=== PATIENT | female | born 1975 | race Caucasian/White ===

== ENCOUNTER 2018-03-01 11:14 | Emergency (ER) | payer MEDICARE, OTHER ==
[~2018-03-01] VITALS: Ht 162.6 cm; Wt 72.6 kg
[2018-03-01] MEDS ORDERED: EPINEPHrine 0.1 MG/ML 10 ML (HOSPIRA) SYR IJ ONE (11:17)
[2018-03-01] MEDS ORDERED: NOREPINEPHRINE 4 MG in NS (IVPB) 250 ML IV SCH (11:33)
[2018-03-01] MEDS ORDERED: NS (IVPB) 250 ML ONE ×4 (11:33→13:16)
[2018-03-01] MEDS ORDERED: NOREPINEPHRINE 4 MG/4 ML (LEVOPHED) AMP IV ONE ×2 (11:33→13:16)
[2018-03-01 11:37] LABS: HEMOGLOBIN 14.4 G/DL (11.5-16.0); MEAN PLATELET VOLUME 11.4 FL (7.4-10.4); RED CELL DISTRIBUTION WIDTH 14.6 % (10.0-14.5); WHITE BLOOD COUNT 17.4 10^3/uL (4.3-11.0)
[2018-03-01] MEDS ORDERED: NS IV 1000 ML 1,000 ML IV SCH ×2 (11:37→12:45)
[2018-03-01] MEDS ORDERED: EPINEPHrine INJECTION 1 MG/ML AMP ONE ×2 (11:41→13:16)
[2018-03-01] MEDS ORDERED: EPINEPHrine 1 MG INJECTION 2 MG in NS (IVPB) 248 ML IV SCH (11:50)
--- NOTE | 2018-03-01 12:21 | Diagnostic Imaging Report ---
INDICATION: CODE BLUE. COMPARISON: None. FINDINGS: Single view of the chest demonstrates an IJ catheter in the SVC. ET tube is in the distal trachea. Diffuse infiltrates are seen throughout both lungs. There is no pneumothorax or large effusion. The heart is prominent. Osseous structures are normal. IMPRESSION: 1. Well-positioned support lines. 2. Diffuse bilateral pulmonary infiltrates. Dictated by: Dictated on workstation # [id number]
[2018-03-01] MEDS ORDERED: NS IV 1000 ML 1,000 ML ONE ×2 (12:28→15:47)
[2018-03-01 12:42] LABS: ALANINE AMINOTRANSFERASE 3805 U/L (0-55); ALBUMIN 2.2 GM/DL (3.2-4.5); ALKALINE PHOSPHATASE 83 U/L (40-136); BILIRUBIN,TOTAL 0.5 MG/DL (0.1-1.0); BUN/CREATININE RATIO 11; CALCIUM 6.6 MG/DL (8.5-10.1); CARBON DIOXIDE 14 MMOL/L (21-32); CHLORIDE 102 MMOL/L (98-107); GFR ESTIMATED 29; GLUCOSE 103 MG/DL (70-105); MAGNESIUM 2.5 MG/DL (1.8-2.4); POTASSIUM 5.2 MMOL/L (3.6-5.0); SODIUM 140 MMOL/L (135-145); TOTAL PROTEIN 4.3 GM/DL (6.4-8.2)
[2018-03-01 12:45] LABS: BILIRUBIN,URINE NEGATIVE (NEGATIVE); GLUCOSE, URINE (UA) NEGATIVE (NEGATIVE); KETONES,URINE NEGATIVE (NEGATIVE); LEUKOCYTE ESTERASE ,URINE 2+ (NEGATIVE); NITRITE,URINE NEGATIVE (NEGATIVE); PH,URINE 6 (5-9); PROTEIN,URINE 2+ (NEGATIVE); UROBILINOGEN,URINE 1 MG/DL (NORMAL)
[2018-03-01] MEDS ORDERED: PIPERACILLIN SODIUM/TAZOBACTAM 4.5 GM in NS (IVPB) 100 ML IV ONE (12:45)
--- NOTE | 2018-03-01 12:50 | ED CPR ---
HPI-CPR General Chief Complaint: Code Blue Stated Complaint: CODE BLUE Source of Information: EMS, Family Exam Limitations: Physical Impairments History of Present Illness Date Seen by Provider: Mar 01, 2018 Time Seen by Provider: 11:15 Initial Comments Here by EMS with code in progress. Apparently the patient had an episode were she may have aspirated and had difficulty breathing and which ultimately resulted and unresponsiveness. EMS was called and found her to be not breathing and in asystole. ACLS measures initiated including CPR. IO placed to the right tibia. Fluids were administered. Epinephrine 1 mg IV given 5 in the field as well as 1 amp of bicarbonate and 1 mg atropine. Patient did progress to PEA after 3 rounds of epi and arrives to the emergency department in PEA. 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 At approximately 32 years of age she started having ataxia problems that was attributed to post radiation therapy and had some weakness on the left side. This also included left-sided vocal cord dysfunction. About 6 years ago she had an incident with pneumonia which was related to MRSA and suspected to be related to aspiration. Ultimately she was intubated but did not require tracheostomy. She does have surgical scar on the neck that is from surgery to the left vocal cord due to significant vocal cord dysfunction. She also has gastric tube of some sort in place to the central abdomen. She does have problems with silent aspiration and family believes that she aspirated today. EMS reports large volume of vomitus within the oropharynx at time of intubation. She had large amount of secretions both gastric secretions and blood. Mother and father arrived into the emergency department and are able to provide some history. Her and she lives in [place], [place] and he is in route currently. Initial Complaints: Dyspnea, Found Unresponsive Witnessed Arrest: Yes Bystander CPR: No Paramedics Initial Findings: Asystole, No Respirations Pre Hospital Treatment: Bag Valve Mask, CPR/Thumper, Intubation, Oxygen, IV Fluids, Atropine (mg) (1), Epinephrine (mg) (6), Sodium Bicarb (amps) (1) Allergies and Home Medications Allergies Coded Allergies: No Allergy Information Available (Unverified , 03/01/18) Patient Home Medication List Home Medication List Reviewed: Yes Review of Systems Review of Systems Constitutional: see HPI; No chills, No fever Respiratory: See HPI, Shortness of Air Cardiovascular: See HPI Gastrointestinal: See HPI Other Comments Unable to complete review of systems due to unresponsive and critical condition Past Nmfiqqf-Mxqzez-Rxwqaj Hx Past Med/Social Hx: Reviewed Nursing Past Med/Soc Hx Past Medical History Surgeries: Yes Abdominal, Neurological, Tracheostomy Respiratory: Yes (aspiration pneumonia) Pneumonia (.) Neurological: Yes Gastrointestinal: Yes Family Medical History Limited history due to critical condition. Family gave some history. Physical Exam Vital Signs Vital Signs - First Documented 03/01/18 03/01/18 11:15 12:30 Temp 94.3 Pulse 101 Resp 15 B/P (MAP) 112/82 (92) Pulse Ox 78 O2 Delivery Ambu Bag O2 Flow Rate 16.00 FiO2 100 Capillary Refill : Height, Weight, BMI Height: '" Weight: lbs. oz. kg; BMI Method: General Appearance: Other (unresponsive and not breathing) HEENT: Other (pupils initially dilated and fixed. Large amount of vomitus within the pharynx) Neck: Non Tender, Supple Respiratory: Crackles, Decreased Breath Sounds (with bagging) Cardiovascular: No Murmur, Tachycardia, Other (initially no pulse but tachycardia after return of spontaneous circulation) Gastrointestinal: Non Tender, Soft, Other (G-tube in place central abdomen) Extremity: No Pedal Edema, Other (absent capillary refill initially and then to sluggish) Neurologic/Psychiatric: Other (unresponsive) Skin: Warm/Dry, Pallor (initially quite pale but did pink after return of circulation) Focused Exam Lactate Level 03/01/18 12:13: Lactic Acid Level 15.52*H Lactic Acid Level Laboratory Tests Test 03/01/18 12:13 Lactic Acid Level 15.52 MMOL/L (0.50-2.00) *H Procedures/Interventions Lumen: triple Central Line Procedure: betadine prep, sterile drapes applied, sterile dressing applied Position: internal jugular (R) Complications: none Post Position: sutured, good blood return, position confirmed w/ CXR Place here ultrasound guidance 2 stick without complications Date of ETT Placement: Mar 01, 2018 Time of ETT Placement: 12:00 Intubation Method: orotracheal Tube Size: 7 Positive End Tide CO2: Yes Breath Sounds after Intubation: bilateral-equal Intubation Complications: apparent aspiration Post Intubation Xray: Yes tube in good position Patient did have tubes placed by EMS that was full of vomitus. There is concerns about dislodged tube and this was removed and replaced. EMS did start with eye gel but there is too much vomitus in the pharynx to control secretions adequately. Concern for significant aspiration due to the amount of vomitus in the mouth and in the tube after intubation. Suctioned and large amounts of fluid obtained from the ET tube. Progress/Results/Core Measures Results/Orders Lab Results Laboratory Tests Test 03/01/18 11:27 03/01/18 11:56 03/01/18 12:13 03/01/18 12:23 Range/Units White Blood Count 17.4 H 4.3-11.0 10^3/uL Red Blood Count 5.00 4.35-5.85 10^6/uL Hemoglobin 14.4 11.5-16.0 G/DL Hematocrit 50 35-52 % Mean Corpuscular Volume 99 80-99 FL Mean Corpuscular Hemoglobin 29 25-34 PG Mean Corpuscular Hemoglobin Concent 29 L 32-36 G/DL Red Cell Distribution Width 14.6 H 10.0-14.5 % Platelet Count 110 L 130-400 10^3/uL Mean Platelet Volume 11.4 H 7.4-10.4 FL Glucometer 123 H 70-110 MG/DL Sodium Level 140 135-145 MMOL/L Potassium Level 5.2 H 3.6-5.0 MMOL/L Chloride Level 102 98-107 MMOL/L Carbon Dioxide Level 14 L 21-32 MMOL/L Anion Gap 24 H 5-14 MMOL/L Blood Urea Nitrogen 20 H 7-18 MG/DL Creatinine 1.90 H 0.60-1.30 MG/DL Estimat Glomerular Filtration Rate 29 BUN/Creatinine Ratio 11 Glucose Level 103 70-105 MG/DL Lactic Acid Level 15.52 *H 0.50-2.00 MMOL/L Calcium Level 6.6 L 8.5-10.1 MG/DL Corrected Calcium 8.0 L 8.5-10.1 MG/DL Magnesium Level 2.5 H 1.8-2.4 MG/DL Total Bilirubin 0.5 0.1-1.0 MG/DL Aspartate Amino Transf (AST/SGOT) 3621 H 5-34 U/L Alanine Aminotransferase (ALT/SGPT) 3805 H 0-55 U/L Alkaline Phosphatase 83 40-136 U/L Troponin I < 0.30 <0.30 NG/ML Total Protein 4.3 L 6.4-8.2 GM/DL Albumin 2.2 L 3.2-4.5 GM/DL Urine Color YELLOW Urine Clarity CLEAR Urine pH 6 5-9 Urine Specific Hiko 1.020 1.016-1.022 Urine Protein 2+ H NEGATIVE Urine Glucose (UA) NEGATIVE NEGATIVE Urine Ketones NEGATIVE NEGATIVE Urine Nitrite NEGATIVE NEGATIVE Urine Bilirubin NEGATIVE NEGATIVE Urine Urobilinogen 1 NORMAL MG/DL Urine Leukocyte Esterase 2+ H NEGATIVE Urine RBC (Auto) NEGATIVE NEGATIVE Urine RBC NONE /HPF Urine WBC RARE /HPF Urine Squamous Epithelial Cells 0-2 /HPF Urine Crystals NONE /LPF Urine Bacteria NEGATIVE /HPF Urine Casts NONE /LPF Urine Mucus NEGATIVE /LPF Urine Culture Indicated NO Test 03/01/18 13:20 Range/Units Blood Gas Puncture Site RT RAD Blood Gas Patient Temperature 93.9 Arterial Blood pH 7.25 *L 7.37-7.43 Arterial Blood Partial Pressure CO2 39 35-45 MMHG Arterial Blood Partial Pressure O2 79 79-93 MMHG Arterial Blood HCO3 17 *L 23-27 MMOL/L Arterial Blood Total CO2 18.5 L 21.0-31.0 MMOL/L Arterial Blood Oxygen Saturation 97 94-100 % Arterial Blood Base Excess -9.1 L -2.5-2.5 MMOL/L Zachariah Test YES-POS Blood Gas Ventilator Setting NA Blood Gas Inspired Oxygen 100% My Orders Orders - KELLY CHERY MD Cbc No Diff (03/01/18 11:30) Lactic Acid Analyzer (03/01/18 11:30) Arterial Blood Gas (03/01/18 11:30) Ns (Ivpb) (Sodium Chloride 0.9%) (03/01/18 11:33) Norepinephrine (Levophed) (03/01/18 11:33) Epinephrine 1 Mg Injection (Adrenalin I (03/01/18 11:41) Ns (Ivpb) (Sodium Chloride 0.9%) (03/01/18 11:41) Chest 1 View, Ap/Pa Only (03/01/18 12:13) Blood Culture (03/01/18 12:23) Chest 1 View, Ap/Pa Only (03/01/18 12:23) Comprehensive Metabolic Panel (03/01/18 12:13) Magnesium (03/01/18 12:13) Troponin I (03/01/18 12:13) Ns Iv 1000 Ml (Sodium Chloride 0.9%) (03/01/18 12:28) Ua Culture If Indicated (03/01/18 12:34) Piperacillin Sodium/Tazobactam (Zosyn Vi (03/01/18 12:45) Ns (Ivpb) (Sodium Chloride 0.9%) (03/01/18 13:15) Norepinephrine (Levophed) (03/01/18 13:16) Epinephrine 1 Mg Injection (Adrenalin I (03/01/18 13:16) Ns (Ivpb) (Sodium Chloride 0.9%) (03/01/18 13:16) Ns Iv 1000 Ml (Sodium Chloride 0.9%) (03/01/18 15:47) Norepinephrine (Levophed) (03/01/18 11:33) Ns (Ivpb) (Sodium C... W/Epinephrine 1 (03/01/18 11:50) Ns Iv 1000 Ml (Sodium Chloride 0.9%) (03/01/18 11:37) Ns Iv 1000 Ml (Sodium Chloride 0.9%) (03/01/18 12:45) Catheter(Urinary) Insert & Ass 03,15 (03/01/18 12:20) Medications Given in ED Current Medications Medications Dose Ordered Sig/Harini Route Start Time Stop Time Status Last Admin Dose Admin Piperacillin Sod/ Tazobactam Sod 4.5 gm/Sodium Chloride 100 ml @ 200 mls/hr ONCE ONCE IV 03/01/18 12:45 03/01/18 13:14 DC 03/01/18 12:48 200 MLS/HR Vital Signs/I&O 03/01/18 03/01/18 03/01/18 03/01/18 11:15 11:15 12:30 13:57 Temp 94.3 Pulse 101 104 Resp 15 16 B/P (MAP) 112/82 (92) 67/52 (57) Pulse Ox 78 98 85 O2 Delivery Ambu Bag Ambu-Bag Mechanical Ventilator O2 Flow Rate 16.00 FiO2 100 Progress Progress Note : Progress Note Seen and evaluated on arrival by EMS. Patient had pulseless and apneic. PEA noted on monitor. CPR continued. Intubated by EMS but changed in the emergency department due to significant amount of fluid in the tube and concerns of dislodgment. Replaced with 7-0 with good bilateral breath sounds. I did speak with family about concerns and we continued CPR. Patient did receive epinephrine 5 and then did have spontaneous return of circulation. Patient was hypotensive on return of circulation she was then started on Levophed drip. OG tube and Chi catheter placed. Central line placed by me due to requirements for pressors. Patient did receive 2 L of normal saline. We did additionally add epinephrine drip. Blood pressure is labile but responding to Levophed and epinephrine with titration of on both.. Vent settings with tidal volume of 450, rate of 16 and PEEP of 5 initiated. This was adjusted to tidal volume of 500 with rate of 15 and PEEP of 7 on 100 percent O2. Levophed adjusted from 15-35 mcg/m and epinephrine and initiated at 10 and has been adjusted to 20 mcg/m to keep map greater than 65. I did discuss the case with Dr. Ware at [facility] in [place], [place] at 1230. He accepts patient for transfer. Pending bed assignment. EMS notified. 1300 : Patient having difficult course related to blood pressure management and management of airway. We did slowly titrate ventilator and pressors to achieve stability. 1322: I have talked at length with the parents and the patient's with regard to current status and critical condition and the therapies thus far. Patient has had multiple adjustments on her meds. Current blood pressure 82/59 with heart rate of 105 and O2 sat of 90 percent with the above settings. EMS arrives and report given to them by me. Emergent transfer to [facility] in [facility] for consideration of therapeutic hypothermia and critical care. All of this was discussed with patient's family who agree with transfer. Initial ECG Impression Date: Mar 01, 2018 Initial ECG Impression Time: 12:28 Initial ECG Rate: 102 Initial ECG Rhythm: S.Tach Comment Sinus tachycardia with left atrial abnormality. Right axis deviation. No evidence of ST elevation ND. No previous available for comparison. Interpreted by me. Diagnostic Imaging Diagonstic Imaging: Xray Plain Films/CT/US/NM/MRI: chest Comments [facility] [place], [place] NAME: RUPESH JOYCE [facility] REC#: [id number] PT STATUS: REG ER : 1975 PHYSICIAN: KELLY CHERY MD ADMIT DATE: 03/01/18/ER Draft Date of Exam:03/01/18 CHEST 1 VIEW, AP/PA ONLY INDICATION: CODE BLUE. COMPARISON: None. FINDINGS: Single view of the chest demonstrates an IJ catheter in the SVC. ET tube is in the distal trachea. Diffuse infiltrates are seen throughout both lungs. There is no pneumothorax or large effusion. The heart is prominent. Osseous structures are normal. IMPRESSION: 1. Well-positioned support lines. 2. Diffuse bilateral pulmonary infiltrates. Dictated on workstation # [id number] Dict: 03/01/18 1218 Trans: 03/01/18 1221 [id number] Interpreted by: TOSHIA GARCIA Electronically signed by: Rikki Imaging: Xray Plain Films/CT/US/NM/MRI: chest Comments NAME: RUPESH JOYCE [facility] REC#: [id number] PT STATUS: REG ER : 1975 PHYSICIAN: KELLY CHERY MD ADMIT DATE: 03/01/18/ER Signed Date of Exam: 03/01/18 CHEST 1 VIEW, AP/PA ONLY INDICATION: Intubated. COMPARISON: 03/01/2018 at 12:10 p.m. FINDINGS: Single view of the chest demonstrates an ET tube in the distal trachea. There is an NG tube within the stomach. The side-port is at or just inferior to the GE junction. The right IJ catheter is stable. Infiltrates continue throughout both lungs. There is no pneumothorax. IMPRESSION: 1. Support lines as described. 2. Unchanged aeration of the lungs. Dictated by: Dictated on workstation # [id number] Dict: 03/01/18 1257 Trans: 03/01/18 1319 Interpreted by: TOSHIA GARCIA Electronically signed by: TOSHIA GARCIA 03/01/18 1319 Critical Care Note Critical Care Start Time: 11:15 Stop Time: 13:30 Total Time (minutes) 60 Departure Impression Primary Impression: Cardiopulmonary arrest with successful resuscitation Additional Impressions: Aspiration pneumonia Qualified Codes: J69.0 - Pneumonitis due to inhalation of food and vomit Hypoxia Acute respiratory failure Qualified Codes: J96.01 - Acute respiratory failure with hypoxia; J96.02 - Acute respiratory failure with hypercapnia Disposition: 02 XFER SHT-TRM HOSP Condition: Critical Transfer Time Spoke to Accepting Phy: 12:30 Transfer Time: 13:30 Transfer Facility: [place], [place], Dr. Ware accepting Method of Transfer: EMS Departure-Patient Inst. Referrals: NO,LOCAL PHYSICIAN (PCP/Family) Primary Care Physician KELLY CHERY MD Mar 01, 2018 12:50
[2018-03-01 12:59] LABS: BACTERIA,URINE NEGATIVE /HPF; CLARITY,URINE CLEAR; COLOR,URINE YELLOW; SQUAMOUS EPITHELIAL CELL,UR 0-2 /HPF; WBC,URINE RARE /HPF
--- NOTE | 2018-03-01 13:02 | Diagnostic Imaging Report ---
INDICATION: Intubated. COMPARISON: 03/01/2018 at 12:10 p.m. FINDINGS: Single view of the chest demonstrates an ET tube in the distal trachea. There is an NG tube within the stomach. The side-port is at or just inferior to the GE junction. The right IJ catheter is stable. Infiltrates continue throughout both lungs. There is no pneumothorax. IMPRESSION: 1. Support lines as described. 2. Unchanged aeration of the lungs. Dictated by: Dictated on workstation # [id number]
[2018-03-01 13:22] LABS: ABG BASE EXCESS -9.1 MMOL/L (-2.5-2.5); ABG OXYGEN SATURATION 97 % (94-100); ABG PCO2 39 MMHG (35-45); ABG PO2 79 MMHG (79-93); ABG TCO2 18.5 MMOL/L (21.0-31.0)
[2018-03-01 13:24] LABS: ABG PH 7.25 (7.37-7.43); ALLENS TEST YES-POS; INSPIRED O2 100%; PATIENT TEMP 93.9
[2018-03-01 13:57] VITALS: BP 67/52
== END 2018-03-01 13:57 | disposition short-term general hospital (02) ==
LOC: EDUNIT# 11:14 → ER 11:16
DX: I46.9 Cardiac arrest, cause unspecified (principal); J69.0 Pneumonitis due to inhalation of food and vomit; J96.01 Acute respiratory failure with hypoxia; Z93.0 Tracheostomy status
CPT/HCPCS: 31500; 36415; 36680; 51702; 71045; 80053; 81000; 82805; 82962; 83605; 83735; 84484; 85027; 87040; 87077; 93041; 94799; 99291; 99292